=== PATIENT | female | born 1980 | race Caucasian/White ===

== ENCOUNTER 2023-04-05 19:38 | Outpatient (CLI) | payer OTHER ==
--- NOTE | 2023-04-06 15:38 | P.PCN ---
Description of Procedure: CLINICAL: Titration with positive air pressure has been done for correction of respiratory abnormalities during sleep. DESCRIPTION OF PROCEDURE: The standard montage for clinical polysomnography included the electroencephalogram, the electrocardiogram, the mentalis surface electromyography and Lead II cardiography. The respiratory battery consisted of measurements of nasal /buccal air flow, pressure transducer measurements from the nose, thoracic and /or abdominal effort and intercostal surface electromyography. Video monitoring has been done to check for any parasomnia events. Nocturnal oxyhemoglobin saturations were obtained by finger oximetry. Step-mccabe titration with positive airway pressure was utilized to control respiratory events. Raw data of sleep recording has been reviewed and is adequate. RESULTS: Sleep efficiency was normal 92.6 %. Latency to sleep onset was and short range 7.5 minutes.]. Sleep architecture showed stage N1 was short 3.9 %, Delta sleep was extremely short 0.3 %, REM sleep was increased to 30.4 %. Heart rate was minimum 61 BPM, maximum 71 BPM, average 66 BPM. EMG showed 1.2 periodic limb movements per hour with 0 micriarousals per hour. PAP titration have been done with CPAP up to the pressure 12 cm H2O. The best results were at the pressure 12 cm H2O. Apnea hypopnea index reduced to 1.4. IMPRESSION: 1. Obstructive sleep apnea hypopnea syndrome on controle with PAP treatment. 2. No significant periodic limb movements have been documented. Please see other impressions from consultation. PLAN: 1. The patient will have treatment with positive air pressure equipment with the level of pressure AutoPAP 5-13 cm H2O and should use it every night for the whole night. 2. Watching and losing weight. 3. Sleep hygiene with regular time in bed for at least 8 hours. 4. No driving if feeling any sleepiness. 5. I will see the patient for follow up visit to explain the results of the test, recommendations, check compliance with treatment and make any necessary adjustment related to mask fitting, pressure and humidification. Thank you very much for allowing me to participate in the management of your patient. Sincerely, Corwin Nur MD, PhD, FAASM Diplomat of [employer] Sleep Medicine Board of [place] [employer] Spider Assembler [facility] [place]
== END 2023-04-06 05:20 | disposition home or self-care (01) ==
LOC: 3 N SLEEP 19:38
PROVIDERS: ATTEND Internal Medicine
DX: G47.33 Obstructive sleep apnea (adult) (pediatric) (principal); G47.61 Periodic limb movement disorder; Z99.89 Dependence on other enabling machines and devices
CPT/HCPCS: 95811

== ENCOUNTER → 2023-10-05 | Outpatient (CLI) | payer OTHER ==
[2023-10-05 16:00] VITALS: BP 120/78; PULSE 84; RESP 16; TEMP 98.2
--- NOTE | 2023-10-05 16:13 | P.PROGSL ---
Subjective DATE: 10/05/2023 FOLLOW UP VISIT. Patient with obstructive sleep apnea hypopnea syndrome return to sleep center for follow-up visit. Recently patient had sleep study which documented obstructive sleep apnea hypopnea syndrome. Patient was initiated on PAP therapy and today is first visit after treatment was started. Patient was able to use PAP equipment every night for the whole night. Patient feels significantly more energy after treatment with CPAP was started. The patient does not have significant problems with the mask, PAP pressure and humidification. [place] sleepiness scale is 4, which is normal. I checked information from PAP unit. PAP unit pressure 5-13, average 12.4 cm H2O. Usage is 97% for more then 4 hours, average 7.8 hours per night. Leak is 5.5 l/m, which is in acceptable range. Apnea Hypopnea Index is 1.9, which is normal. MEDICATIONS: See below During physical exam: GENERAL: A pleasant patient without any distress. VITAL SIGNS: See below, weight 259 pounds, patient increased weight on 4 pounds comparing with previous visit. HEENT: PERRLA, EOMI.low position of soft palate, Mallapati 4 . NECK: Supple. No JVD. LUNGS: Clear to percussion and to auscultation. Good air exchange. No wheezing or rhonchi. HEART: S1, S2 regular. ABDOMEN: Soft and nontender. Slightly obese EXTREMITIES: No clubbing or cyanosis. MINE GEOLOGIST: Awake, alert, and oriented x3. No focal deficit. Impressions: 1. Obstructive sleep apnea-hypopnea syndrome. Patient demonstrated great compliance with treatment, benefiting from treatment. 2. Obesity. 3. Status post total hysterectomy. 4. History of thyroid problems in the past. 5. History of episodes of anxiety in the past. Plan: 1. Continue using PAP equipment every night for the whole night. 2. To change air filter at least 1-2 times per month. 3. PAP unit should stay lower then position of the head. 4. Advised patient to remove all remaining water from humidifier canister daily and make it dry after each usage. Refill canister with fresh distilled water before each usage. 5. Sleep hygiene with regular time in bed for at least 8 hours. 6. Precautions related to driving. No driving if feel any sleepiness. 7. I will maintain prescription for PAP supplies including mask, tube, filters. 8. Follow up visit in 6 months or earlier if patient has any problems. 9. Watching and losing weight. Thank you very much for allowing me to participate in the management of your patient. Corwin Nur MD, PhD, FAASM. Diplomat of [employer], Sleep Medicine Board by [employer] Operator [facility] [place] Objective - Vital Signs Vital Signs: Vital Signs Temp 98.2 F 10/05/23 15:59 Pulse 84 10/05/23 15:59 Resp 16 10/05/23 15:59 BP 120/78 10/05/23 15:59 Pulse Ox 99 10/05/23 15:59 FiO2 Intake & Output 10/04/23 10/05/23 10/05/23 18:59 06:59 18:59 Weight 117.48 kg
== END ==
LOC: 3 N SLEEP 15:50
PROVIDERS: ATTEND Internal Medicine
DX: G47.33 Obstructive sleep apnea (adult) (pediatric) (principal); E66.9 Obesity, unspecified; Z86.69 Personal history of other diseases of the nervous system and sense organs; Z90.710 Acquired absence of both cervix and uterus; Z99.89 Dependence on other enabling machines and devices; Z86.39 Personal history of other endocrine, nutritional and metabolic disease; Z68.42 Body mass index [BMI] 45.0-49.9, adult
CPT/HCPCS: 99212

== ENCOUNTER → 2024-06-26 | Outpatient (CLI) | payer OTHER ==
[2024-06-26 12:06] VITALS: BP 115/79; PULSE 76; RESP 16; TEMP 98.1
--- NOTE | 2024-06-26 12:29 | P.PROGSL ---
Subjective DATE: 06/26/2024 FOLLOW UP VISIT. Patient with obstructive sleep apnea hypopnea syndrome return to sleep center for follow-up visit. Information from previous visit have been reviewed. Patient is using PAP equipment every night for the whole night, getting PAP supplies in time. The patient does not have significant problems with the mask, PAP unit and humidification. [place] sleepiness scale is 8, which is normal. I checked information from PAP unit. PAP unit pressure 5-13, average 12.3 cm H2O. Usage is 100% for more then 4 hours, average 7.4 hours per night. Leak is 0 l/m, which is perfect. Apnea Hypopnea Index is 2.0, which is normal. MEDICATIONS: None. During physical exam: GENERAL: A pleasant patient without any distress. VITAL SIGNS: Please see below, weight is 258 lbs. HEENT: PERRLA, EOMI.low position of soft palate, Mallapati 4 . NECK: Supple. No JVD. LUNGS: Clear to percussion and to auscultation. Good air exchange. No wheezing or rhonchi. HEART: S1, S2 regular. ABDOMEN: Soft and nontender.[] EXTREMITIES: No clubbing or cyanosis. GUN EXAMINER: Awake, alert, and oriented x3. No focal deficit. Impressions: 1. Obstructive sleep apnea-hypopnea syndrome. Patient demonstrated great compliance with treatment, benefiting from treatment. 2. Obesity, BMI 47.1, patient lost 1 pound comparing with previous visit. 3. History of thyroid problems in the past. 4. History of episodes of anxiety in the past. 5. Status post total hysterectomy. Plan: 1. Continue using PAP equipment every night for the whole night. 2. Sleep hygiene with regular time in bed for at least 7.5-8 hours 3. PAP unit should stay lower then position of the head. 4. Advised patient to remove all remaining water from humidifier canister daily and make it dry after each usage. Refill canister with fresh distilled water before each usage. 5. Watching and losing weight. 6. Precautions related to driving. No driving if feel any sleepiness. 7. I will maintain prescription for PAP supplies including mask, tube, filters. 8. Follow up visit in 8 months or earlier if patient has any problems. Thank you very much for allowing me to participate in the management of your patient. Corwin Nur MD, PhD, FAASM. Diplomat of [place] [employer], Sleep Medicine Board by [employer] Parking Manager of [facility] [place] Objective - Vital Signs Vital Signs: Vital Signs Temp 98.1 F 06/26/24 12:06 Pulse 76 06/26/24 12:06 Resp 16 06/26/24 12:06 BP 115/79 06/26/24 12:06 Pulse Ox 98 06/26/24 12:06 FiO2 Home Medications: Home Medications Medication Instructions Recorded Confirmed Type Cetirizine HCl [Zyrtec] 10 mg PO DAILY 06/26/24 06/26/24 History
== END ==
LOC: 3 N SLEEP 11:48
PROVIDERS: ATTEND Internal Medicine
DX: G47.33 Obstructive sleep apnea (adult) (pediatric) (principal); E66.9 Obesity, unspecified; Z68.42 Body mass index [BMI] 45.0-49.9, adult; Z86.59 Personal history of other mental and behavioral disorders; Z90.710 Acquired absence of both cervix and uterus; Z86.39 Personal history of other endocrine, nutritional and metabolic disease
CPT/HCPCS: 99212